=== PATIENT | female | born 1935 | race Caucasian/White ===

== ENCOUNTER → 2019-11-08 09:33 | Outpatient (CLI) | payer MEDICARE, SELFPAY ==
--- NOTE | 2019-11-08 15:01 | NEURO ---
NCS and/or EMG Patient Report Ordering Doctor: Sharlene Roberson DATE OF SERVICE: 11/08/19 Corazon Hopkins is an 84-year-old female presents for electrodiagnostic testing of the upper limbs. She wears numbness and tingling in both hands. Electrodiagnostic findings: Median motor nerve demonstrates prolonged distal latency with reduced amplitude and conduction velocity on the left side. Normal right median motor amplitude and conduction velocity. Ulnar motor response normal bilaterally. Prolonged right median F wave. Prolonged median sensory latency at the wrist bilaterally. On needle EMG, all muscles tested in the upper limb showed no evidence of denervation with normal motor unit action potentials. Electrodiagnostic impression: This is an abnormal study in the upper limbs 1. Electrodiagnostic findings demonstrate bilateral median mononeuropathy. This is consistent with a moderate right carpal tunnel syndrome and a severe left carpal tunnel syndrome. If there are any further questions, please not hesitate to contact me.
== END ==
PROVIDERS: PCP Internal Medicine; Referring Provider Internal Medicine; Visit Provider Internal Medicine
DX: G56.03 Carpal tunnel syndrome, bilateral upper limbs (principal)
CPT/HCPCS: 95886; 95911